=== PATIENT | male | born 1990 | race Caucasian/White ===

== ENCOUNTER 2020-05-31 19:32 | Emergency (ER) | payer OTHER ==
[2020-05-31] MEDS ORDERED: SODIUM CHLORIDE 0.9% 1,000 ML IV STA (20:03)
--- NOTE | 2020-05-31 20:39 | XR ---
EXAMINATION TYPE: XR chest 2V DATE OF EXAM: 05/31/2020 COMPARISON: NONE HISTORY: Chest pain. TECHNIQUE: Frontal and lateral views of the chest are obtained. FINDINGS: Overlying EKG leads. There is no focal air space opacity, pleural effusion, or pneumothorax seen. The cardiac silhouette size is within normal limits. The osseous structures are intact. IMPRESSION: No acute cardiopulmonary process.
[2020-05-31 20:40] LABS: ALT 18 U/L (4-49); AST 33 U/L (17-59); African American GFR (CKD) >90 (>60 ml/min/1.73 sqM); Alkaline Phosphatase 56 U/L (38-126); Anion Gap 6 mmol/L; Blood Urea Nitrogen 8 mg/dL (9-20); Calcium 8.8 mg/dL (8.4-10.2); Carbon Dioxide 24 mmol/L (22-30); Chloride 106 mmol/L (98-107); Glucose 109 mg/dL (74-99); Magnesium 1.6 mg/dL (1.6-2.3); Non-African American GFR(CKD) >90 (>60 ml/min/1.73 sqM); Potassium 3.6 mmol/L (3.5-5.1); Sodium 136 mmol/L (137-145); Total Bilirubin 0.5 mg/dL (0.2-1.3); Total Protein 6.8 g/dL (6.3-8.2)
[2020-05-31 20:46] LABS: HCT 40.6 % (39.0-53.0); MCH 31.3 pg (25.0-35.0); MCHC 34.5 g/dL (31.0-37.0); MCV 90.6 fL (80.0-100.0); Mean Platelet Volume 8.5; Platelet Count 155 k/uL (150-450); RBC 4.48 m/uL (4.30-5.90); WBC 9.6 k/uL (3.8-10.6)
--- NOTE | 2020-05-31 20:47 | ED ---
General Adult HPI - General Chief complaint: Chest Pain Stated complaint: chest discomfort Time Seen by Provider: 05/31/20 19:35 Source: EMS, RN notes reviewed, old records reviewed Mode of arrival: EMS Limitations: no limitations - History of Present Illness Initial comments: 29-year-old male patient presents to ED for evaluation of brief episode of chest discomfort and shortness of breath. Patient reports that he is at [facility] for alcohol and heroin and Xanax abuse. He reports that he snorts the heroin denies ever doing any IV drugs. Reports that they have no air conditioning there and that he is doing chores and working strenuously all day. Reports that he was very hot feels like overexerted himself. Reports that he had some brief anterior Chest discomfort and Shortness of Breath. States that it was like a muscle ache. Nonradiating, no other associated symptoms. States that he is feeling much better now that he is an air conditioning and relaxed. Denies and pain or other acute complaints. Systemic: Pt denies fatigue, fever/chills, rash. Pt denies weakness, night sweats, weight loss. Neuro: Pt denies headache, visual disturbances, syncope or pre-syncope. HEENT: Pt denies ocular discharge or irritation, otalgia, rhinorrhea, pharyngitis or notable lymphadenopathy. Cardiopulmonary: Pt denies heart palpitations. Abdominal/GI: Pt denies abdominal pain, n/v/d. : Pt denies dysuria, burning w/ urination, frequency/urgency. Denies new onset urinary or bowel incontinence. MSK: Pt denies loss of strength or function in extremities. Neuro: Pt denies new onset weakness, paresthesias. - Related Data Home Medications Medication Instructions Recorded Confirmed No Known Home Medications 05/31/20 05/31/20 Allergies Allergy/AdvReac Type Severity Reaction Status Date / Time Penicillins Allergy Rash/Hives Verified 05/31/20 19:45 Review of Systems ROS Statement: Those systems with pertinent positive or pertinent negative responses have been documented in the HPI. ROS Other: All systems not noted in ROS Statement are negative. Past Medical History Additional Past Medical History / Comment(s): pancreatitis History of Any Multi-Drug Resistant Organisms: None Reported Past Surgical History: No Surgical Hx Reported Past Psychological History: No Psychological Hx Reported Smoking Status: Current every day smoker Past Alcohol Use History: Abuse Past Drug Use History: Heroin, Prescription Drug Abuse General Exam - General Exam Comments Initial Comments: Constitutional: NAD, AOX3, Pt has pleasant affect. HEENT: NC/AT, trachea midline, neck supple, no lymphadenopathy. Posterior pharynx non erythematous, without exudates. External ears appear normal, without discharge. Mucous membranes moist. Eyes PERRLA, EOM intact. There is no scleral icterus. No pallor noted. Cardiopulmonary: RRR, no murmurs, rubs or gallops, no JVD noted. Lungs CTAB in anterior and posterior ansari. No peripheral edema. Abdominal exam: Abdomen soft and non-distended. Abdomen non-tender to palpation in all 4 quadrants. Bowel sounds active in LLQ. No hepatosplenomegaly. No ecchymosis Neuro: CN II-XII intact. No nuchal rigidity. No raccon eyes, no clemens sign, no hemotympanum. No cervical spinal tenderness. No ataxia, no nystagmus. MSK: No posterior calf tenderness bilaterally, homans sign negative bilaterally. Posterior tibialis and radial pulse +2 bilaterally. Sensation intact in upper and lower extremities. Full active ROM in upper and lower extremities, 5/5 stregnth. Limitations: no limitations Course Vital Signs 05/31/20 19:40 Temperature 98.2 F Pulse Rate 76 Respiratory 16 Rate Blood Pressure 153/100 O2 Sat by Pulse 99 Oximetry Medical Decision Making - Medical Decision Making 29-year-old male patient is evaluation after brief episodes of chest pain shortness breath while working on a hot day. Upon evaluation patient had no acute complaints to that he felt much improved. Patient's vital signs are stable, afebrile. Physical exam didn't display acute pathology. Laboratory investigations are non-impressive. Patient continues to state that he is asymptomatic. Patient will be discharged with follow-up with primary care provi dmitriy will return to ER if condition worsens. Case discussed with Dr. Trivedi. - Lab Data Result diagrams: 05/31/20 20:18 05/31/20 20:18 Lab Results 05/31/20 05/31/20 05/31/20 Range/Units 20:18 20:18 20:18 WBC 9.6 (3.8-10.6) k/uL RBC 4.48 (4.30-5.90) m/uL Hgb 14.0 (13.0-17.5) gm/dL Hct 40.6 (39.0-53.0) % MCV 90.6 (80.0-100.0) fL MCH 31.3 (25.0-35.0) pg MCHC 34.5 (31.0-37.0) g/dL RDW 14.0 (11.5-15.5) % Plt Count 155 (150-450) k/uL Neutrophils % (Manual) 72 % Band Neutrophils % 2 % Lymphocytes % (Manual) 22 % Monocytes % (Manual) 4 % Neutrophils # (Manual) 7.10 (1.3-7.7) k/uL Lymphocytes # (Manual) 2.11 (1.0-4.8) k/uL Monocytes # (Manual) 0.38 (0-1.0) k/uL Nucleated RBCs 0 (0-0) /100 WBC Manual Slide Review Performed Polychromasia Present Anisocytosis (manual) Present Sodium 136 L (137-145) mmol/L Potassium 3.6 (3.5-5.1) mmol/L Chloride 106 (98-107) mmol/L Carbon Dioxide 24 (22-30) mmol/L Anion Gap 6 mmol/L BUN 8 L (9-20) mg/dL Creatinine 0.57 L (0.66-1.25) mg/dL Est GFR (CKD-EPI)AfAm >90 (>60 ml/min/1.73 sqM) Est GFR (CKD-EPI)NonAf >90 (>60 ml/min/1.73 sqM) Glucose 109 H (74-99) mg/dL Calcium 8.8 (8.4-10.2) mg/dL Magnesium 1.6 (1.6-2.3) mg/dL Total Bilirubin 0.5 (0.2-1.3) mg/dL AST 33 (17-59) U/L ALT 18 (4-49) U/L Alkaline Phosphatase 56 (38-126) U/L Troponin I <0.012 (0.000-0.034) ng/mL Total Protein 6.8 (6.3-8.2) g/dL Albumin 4.0 (3.5-5.0) g/dL Urine Color Urine Appearance (Clear) Urine pH (5.0-8.0) Ur Specific [place] (1.001-1.035) Urine Protein (Negative) Urine Glucose (UA) (Negative) Urine Ketones (Negative) Urine Blood (Negative) Urine Nitrite (Negative) Urine Bilirubin (Negative) Urine Urobilinogen (<2.0) mg/dL Ur Leukocyte Esterase (Negative) 05/31/20 Range/Units 21:43 WBC (3.8-10.6) k/uL RBC (4.30-5.90) m/uL Hgb (13.0-17.5) gm/dL Hct (39.0-53.0) % MCV (80.0-100.0) fL MCH (25.0-35.0) pg MCHC (31.0-37.0) g/dL RDW (11.5-15.5) % Plt Count (150-450) k/uL Neutrophils % (Manual) % Band Neutrophils % % Lymphocytes % (Manual) % Monocytes % (Manual) % Neutrophils # (Manual) (1.3-7.7) k/uL Lymphocytes # (Manual) (1.0-4.8) k/uL Monocytes # (Manual) (0-1.0) k/uL Nucleated RBCs (0-0) /100 WBC Manual Slide Review Polychromasia Anisocytosis (manual) Sodium (137-145) mmol/L Potassium (3.5-5.1) mmol/L Chloride (98-107) mmol/L Carbon Dioxide (22-30) mmol/L Anion Gap mmol/L BUN (9-20) mg/dL Creatinine (0.66-1.25) mg/dL Est GFR (CKD-EPI)AfAm (>60 ml/min/1.73 sqM) Est GFR (CKD-EPI)NonAf (>60 ml/min/1.73 sqM) Glucose (74-99) mg/dL Calcium (8.4-10.2) mg/dL Magnesium (1.6-2.3) mg/dL Total Bilirubin (0.2-1.3) mg/dL AST (17-59) U/L ALT (4-49) U/L Alkaline Phosphatase (38-126) U/L Troponin I (0.000-0.034) ng/mL Total Protein (6.3-8.2) g/dL Albumin (3.5-5.0) g/dL Urine Color Light Yellow Urine Appearance Clear (Clear) Urine pH 7.5 (5.0-8.0) Ur Specific [place] 1.008 (1.001-1.035) Urine Protein Negative (Negative) Urine Glucose (UA) Negative (Negative) Urine Ketones Trace H (Negative) Urine Blood Negative (Negative) Urine Nitrite Negative (Negative) Urine Bilirubin Negative (Negative) Urine Urobilinogen <2.0 (<2.0) mg/dL Ur Leukocyte Esterase Negative (Negative) - EKG Data -: EKG Interpreted by Me (and Dr. Trivedi ) EKG Comments: Ventricular rate 62, peripheral 140, QRS 114, QT/QTc 416/4.2. Ceftin sensory. Incomplete right bundle branch block. Left anterior fascicular block. No concern for acute ischemia. Disposition Clinical Impression: Atypical chest pain Disposition: HOME SELF-CARE Condition: Stable Instructions (If sedation given, give patient instructions): Chest Wall Pain (ED) Additional Instructions: Follow up with PCP tomorrow. Return to ED if condition worsens. Is patient prescribed a controlled substance at d/c from ED?: No Referrals: None,Stated [Primary Care Provider] - 1-2 days Darion Navarro MD [REFERRING] - 1-2 days
[2020-05-31 22:03] LABS: Appearance,Urine Clear (Clear); Bilirubin,Urine Negative (Negative); Blood,Urine Negative (Negative); Color,Urine Light Yellow; Glucose,Urine (UA) Negative (Negative); Ketones,Urine Trace (Negative); Leukocyte Esterase,Urine Negative (Negative); Nitrite,Urine Negative (Negative); PH, Urine 7.5 (5.0-8.0); Protein,Urine Negative (Negative); Specific Gravity,Urine 1.008 (1.001-1.035); Urobilinogen,Urine <2.0 mg/dL (<2.0)
[2020-05-31 22:59] LABS: Band Neutrophils % 2 %; Lymphocytes # (M) 2.11 k/uL (1.0-4.8); Monocytes # (M) 0.38 k/uL (0-1.0); Neutrophils % (M) 72 %; Nucleated Red Blood Cells 0 /100 WBC (0-0); Total Cells Counted 100
[2020-05-31 23:00] LABS: Anisocytosis (M) Present
[2020-05-31 23:02] LABS: Polychromasia Present
[2020-05-31 23:36] VITALS: BP 124/108; PULSE 61; RESP 18; TEMP 99.1
== END 2020-05-31 23:36 | disposition home or self-care (01) ==
LOC: EC 19:32
DX: R07.89 Other chest pain (principal); R06.02 Shortness of breath; F17.200 Nicotine dependence, unspecified, uncomplicated; Z88.0 Allergy status to penicillin
CPT/HCPCS: 36415; 71046; 80053; 81003; 83735; 84484; 85025; 93005; 96360; 96361; 99285

== ENCOUNTER 2024-03-21 01:10 | Observation (INO) | payer OTHER ==
[2024-03-21] MEDS ORDERED: LORazepam 2 MG/ML INJ IV PRN ×2 (01:26)
[2024-03-21] MEDS: SODIUM CHLORIDE 0.9% 1,000 ML IV STA (02:36)
[2024-03-21] MEDS: THIAMINE 100 MG/ML 2 ML VIAL IM STA (02:39)
[2024-03-21] MEDS: LORazepam 2 MG/ML INJ IV PRN (03:03)
[2024-03-21 03:13] LABS: ALT 20 U/L (4-49); AST 29 U/L (17-59); African American GFR (CKD) >90 (>60 ml/min/1.73 sqM); Albumin 4.1 g/dL (3.5-5.0); Alkaline Phosphatase 63 U/L (38-126); Anion Gap 5 mmol/L; Blood Urea Nitrogen 5 mg/dL (9-20); Calcium 8.7 mg/dL (8.4-10.2); Carbon Dioxide 26 mmol/L (22-30); Chloride 105 mmol/L (98-107); Glucose 113 mg/dL (74-99); Lipase 161 U/L (23-300); Magnesium 1.6 mg/dL (1.6-2.3); Non-African American GFR(CKD) >90 (>60 ml/min/1.73 sqM); Potassium 3.6 mmol/L (3.5-5.1); Sodium 136 mmol/L (137-145); Total Bilirubin 0.6 mg/dL (0.2-1.3)
[2024-03-21 03:19] LABS: HCT 42.5 % (39.0-53.0); HGB 14.3 gm/dL (13.0-17.5); MCH 29.6 pg (25.0-35.0); MCHC 33.6 g/dL (31.0-37.0); MCV 88.1 fL (80.0-100.0); Mean Platelet Volume 8.3; RBC 4.82 m/uL (4.30-5.90); RDW 15.4 % (11.5-15.5); WBC 7.5 k/uL (3.8-10.6)
[2024-03-21 03:22] LABS: Platelet Count 90 k/uL (150-450)
--- NOTE | 2024-03-21 03:58 | ED ---
Alcohol HPI - General Chief Complaint: Alcohol Stated Complaint: Detox Time Seen by Provider: 03/21/24 01:22 Source: patient, EMS Mode of arrival: EMS - History of Present Illness Initial Comments: . 33-year-old male presenting from [place] for paranoia and hallucinations. Patient is currently detoxing from alcohol, benzodiazepines, and opioids. This evening the patient began hallucinating believing that he was being watched on the security footage at the facility. He was also refusing his medications. He was sent to our facility for further evaluation. Patient stat es "I feel great". - Related Data Home Medications Medication Instructions Recorded Confirmed Acetaminophen Tab [Tylenol] 650 mg PO Q4H MDD 4 DOSES 03/21/24 03/21/24 Calcium/Mag/D3/Zinc 1 tab PO TID PRN 03/21/24 03/21/24 Ibuprofen [Motrin Ib] 600 mg PO Q6H PRN 03/21/24 03/21/24 Multivitamins, Thera [Multivitamin 1 tab PO DAILY 03/21/24 03/21/24 (formulary)] Mylanta 30 ml PO Q4H PRN 03/21/24 03/21/24 QUEtiapine [SEROquel] 50 - 100 mg PO HS PRN 03/21/24 03/21/24 Thiamine [Vitamin B-1] 100 mg PO DAILY 03/21/24 03/21/24 buprenorphine HCL [Subutex] 2 - 4 mg SL DIRECTED 03/21/24 03/21/24 cloNIDine HCL [Catapres] 0.1 mg PO Q4H PRN 03/21/24 03/21/24 ondansetron HCL [Zofran] 8 mg PO Q6H PRN 03/21/24 03/21/24 Allergies Allergy/AdvReac Type Severity Reaction Status Date / Time Penicillins Allergy Rash/Hives Verified 03/21/24 06:33 Review of Systems ROS Statement: Those systems with pertinent positive or pertinent negative responses have been documented in the HPI. ROS Other: All systems not noted in ROS Statement are negative. Past Medical History Additional Past Medical History / Comment(s): pancreatitis History of Any Multi-Drug Resistant Organisms: None Reported Past Surgical History: No Surgical Hx Reported Past Psychological History: No Psychological Hx Reported Smoking Status: Current every day smoker Past Alcohol Use History: Abuse Past Drug Use History: Heroin, Prescription Drug Abuse General Exam General appearance: alert, in no apparent distress Head exam: Present: atraumatic, normocephalic Eye exam: Present: normal appearance, EOMI Neck exam: Present: normal inspection. Absent: meningismus Respiratory exam: Present: normal lung sounds bilaterally. Absent: respiratory distress, wheezes, rales, rhonchi, stridor Cardiovascular Exam: Present: regular rate, normal rhythm, normal heart sounds. Absent: systolic murmur, diastolic murmur, rubs, gallop, clicks Neurological exam: Present: alert, oriented X3 Expanded Focused psych exam: Present: delusional, paranoid Skin exam: Present: normal color Course Vital Signs 03/21/24 03/21/24 03/21/24 01:12 02:15 03:00 Temperature 98.9 F Pulse Rate 105 H 118 H 105 H Respiratory 18 20 18 Rate Blood Pressure 146/94 145/90 137/86 O2 Sat by Pulse 96 99 98 Oximetry 03/21/24 03/21/24 03/21/24 04:00 07:00 14:00 Temperature 98.4 F Pulse Rate 86 68 89 Respiratory 16 16 18 Rate Blood Pressure 135/83 149/91 113/88 O2 Sat by Pulse 99 97 99 Oximetry Medical Decision Making - Medical Decision Making Was pt. sent in by a medical professional or institution ([facility], [facility], urgent care, hospital, or [facility]...) When possible be specific @ -Sent from [facility] Did you speak to anyone other than the patient for history (EMS, parent, family, police, friend...)? What history was obtained from this source @ -No Did you review nursing and triage notes (agree or disagree)? Why? @ -I reviewed and agree with nursing and triage notes Were old charts reviewed (outside hosp., previous admission, EMS record, old EKG, old radiological studies, urgent care reports/EKG's, [facility] records)? Report findings @ -No old charts were reviewed Differential Diagnosis (chest pain, altered mental status, abdominal pain women, abdominal pain men, vaginal bleeding, weakness, fever, dyspnea, syncope, headache, dizziness, GI bleed, back pain, seizure, CVA, palpatations, mental health, musculoskeletal)? @ -Differential includes alcohol withdrawal, tachycardia, electrolyte imbalance, infectious process, this is not an all-inclusive list EKG interpreted by me (3pts min.). @ -As above X-rays interpreted by me (1pt min.). @ -None done CT interpreted by me (1pt min.). @ -None done U/S interpreted by me (1pt. min.). @ -None done What testing was considered but not performed or refused? (CT, X-rays, U/S, labs)? Why? @ -None What meds were considered but not given or refused? Why? @ -None Did you discuss the management of the patient with other professionals (professionals i.e. DrBarry, PA, [employer], lab, RT, psych nurse, director of social work, pneumatic systems operator, teacher, command center officer, high risk case manager)? Give summary @ -My attending spoke with the [facility] provider on-call accepted admission Was smoking cessation discussed for >3mins.? @ -No Was critical care preformed (if so, how long)? @ -No Were there social determinants of health that impacted care today? How? (Homelessness, low income, unemployed, alcoholism, drug addiction, transportation, low edu. Level, literacy, decrease access to med. care, group home, rehab)? @ -No Was there de-escalation of care discussed even if they declined (Discuss DNR or withdrawal of care, Hospice)? DNR status @ -No What co-morbidities impacted this encounter? (DM, HTN, Smoking, COPD, CAD, Cancer, CVA, ARF, Chemo, Hep., AIDS, mental health diagnosis, sleep apnea, morbid obesity)? @ -Alcohol use disorder Was patient admitted / discharged? Hospital course, mention meds given and route, prescriptions, significant lab abnormalities, going to OR and other pertinent info. @ -33-year-old male symptomatic heart for alcohol withdrawal symptoms. Patient was having hallucinations and severe paranoia. History and physical exam are conducted. CIWA is 14. Patient placed on CIWA protocol and will be admitted for alcohol withdrawal. I discussed this case with my attending Dr. Xie Undiagnosed new problem with uncertain prognosis? @ -No Drug Therapy requiring intensive monitoring for toxicity (Heparin, Nitro, Insulin, Cardizem)? @ -No Were any procedures done? @ -No Diagnosis/symptom? @ -Alcohol withdrawal Acute, or Chronic, or Acute on Chronic? @ -Acute Uncomplicated (without systemic symptoms) or Complicated (systemic symptoms)? @ -Complicated Side effects of treatment? @ -No Exacerbation, Progression, or Severe Exacerbation? @ -No Poses a threat to life or bodily function? How? (Chest pain, [place], [place], pneumonia, PE, COPD, DKA, ARF, appy, cholecystitis, CVA, Diverticulitis, Homicidal, Suicidal, threat to staff... and all critical care pts) @ -Yes - Lab Data Result diagrams: 03/21/24 02:53 03/21/24 02:53 Lab Results 03/21/24 03/21/24 Range/Units 02:53 02:53 WBC 7.5 (3.8-10.6) k/uL RBC 4.82 (4.30-5.90) m/uL Hgb 14.3 (13.0-17.5) gm/dL Hct 42.5 (39.0-53.0) % MCV 88.1 (80.0-100.0) fL MCH 29.6 (25.0-35.0) pg MCHC 33.6 (31.0-37.0) g/dL RDW 15.4 (11.5-15.5) % Plt Count 90 L (150-450) k/uL MPV 8.3 Neutrophils % (Manual) 65 % Lymphocytes % (Manual) 23 % Monocytes % (Manual) 12 % Neutrophils # (Manual) 4.88 (1.3-7.7) k/uL Lymphocytes # (Manual) 1.73 (1.0-4.8) k/uL Monocytes # (Manual) 0.90 (0-1.0) k/uL Nucleated RBCs 0 (0-0) /100 WBC Manual Slide Review Performed RBC Morphology Normal Sodium 136 L (137-145) mmol/L Potassium 3.6 (3.5-5.1) mmol/L Chloride 105 (98-107) mmol/L Carbon Dioxide 26 (22-30) mmol/L Anion Gap 5 mmol/L BUN 5 L (9-20) mg/dL Creatinine 0.43 L (0.66-1.25) mg/dL Est GFR (CKD-EPI)AfAm >90 (>60 ml/min/1.73 sqM) Est GFR (CKD-EPI)NonAf >90 (>60 ml/min/1.73 sqM) Glucose 113 H (74-99) mg/dL Calcium 8.7 (8.4-10.2) mg/dL Magnesium 1.6 (1.6-2.3) mg/dL Total Bilirubin 0.6 (0.2-1.3) mg/dL AST 29 (17-59) U/L ALT 20 (4-49) U/L Alkaline Phosphatase 63 (38-126) U/L Total Protein 7.0 (6.3-8.2) g/dL Albumin 4.1 (3.5-5.0) g/dL Lipase 161 (23-300) U/L Disposition Clinical Impression: Alcohol withdrawal syndrome Disposition: ADMITTED IP TO THIS HOSP Condition: Fair Is patient prescribed a controlled substance at d/c from ED?: No Time of Disposition: 04:12
[2024-03-21] MEDS ORDERED: ONDANSETRON 4 MG/2 ML VIAL IVP PRN (04:10)
[2024-03-21] MEDS ORDERED: NALOXONE 0.4 MG/ML 1 ML VIAL IV PRN (04:10)
[2024-03-21] MEDS ORDERED: IBUPROFEN 400 MG TAB PO PRN (04:10)
[2024-03-21 05:02] LABS: Lymphocytes # (M) 1.73 k/uL (1.0-4.8); Neutrophils # (M) 4.88 k/uL (1.3-7.7); Neutrophils % (M) 65 %; Nucleated Red Blood Cells 0 /100 WBC (0-0); RBC Morphology Normal; Total Cells Counted 100
[2024-03-21] MEDS ORDERED: HYOSCYAMINE SULFATE 0.125 MG TAB PO PRN (10:02)
[2024-03-21] MEDS ORDERED: cloNIDine HCL 0.1 MG TAB PO PRN (10:02)
[2024-03-21] MEDS ORDERED: LOPERAMIDE 2 MG CAP PO PRN (10:02)
[2024-03-21] MEDS: MULTIVITAMINS, THERA 1 EACH TAB PO SCH (10:13)
[2024-03-21] MEDS: ACETAMINOPHEN TAB 325 MG TAB PO SCH (10:13)
--- NOTE | 2024-03-21 12:13 | P.HPIM ---
History of Present Illness 33-year-old male was sent in here from [facility] because of paranoia and hallucinations although patient denies any such symptoms to me. Patient is at [facility] for alcohol intoxication patient last drink was about 5 days ago austin dyer is presently not have any withdrawals and I do not expect any withdrawals at this time. Does not have any symptoms of schizophrenia or schizoaffective disorder. Patient denied any visual, tactile or auditory hallucinations. Patient thought processes fine there is no tangentiality. Patient is on multiple medications that can cause confusion including Imodium Levsin on as- needed basis. Patient had history of IV drug use in the past and is on Subutex as an outpatient. Patient does not know if he has hepatitis C. REVIEW OF SYSTEMS: CONSTITUTIONAL: No fever, no malaise, no fatigue. HEENT: No recent visual problems or hearing problems. Denied any sore throat. CARDIOVASCULAR: No chest pain, orthopnea, PND, no palpitations, no syncope. PULMONARY: No shortness of breath, no cough, no hemoptysis. GASTROINTESTINAL: No diarrhea, no nausea, no vomiting, no abdominal pain. NEUROLOGICAL: No headaches, no weakness, no numbness. HEMATOLOGICAL: Denies any bleeding or petechiae. GENITOURINARY: Denies any burning micturition, frequency, or urgency. MUSCULOSKELETAL/RHEUMATOLOGICAL: Denies any joint pain, swelling, or any muscle pain. ENDOCRINE: Denies any polyuria or polydipsia. The rest of the 14-point review of systems is negative. PHYSICAL EXAMINATION: GENERAL: The patient is alert and oriented x3, not in any acute distress. Well developed, well nourished. HEENT: Pupils are round and equally reacting to light. EOMI. No scleral icterus. No conjunctival pallor. Normocephalic, atraumatic. No pharyngeal erythema. No thyromegaly. CARDIOVASCULAR: S1 and S2 present. No murmurs, rubs, or gallops. PULMONARY: Chest is clear to auscultation, no wheezing or crackles. ABDOMEN: Soft, nontender, nondistended, normoactive bowel sounds. No palpable organomegaly. MUSCULOSKELETAL: No joint swelling or deformity. EXTREMITIES: No cyanosis, clubbing, or pedal edema. NEUROLOGICAL: Gross neurological examination did not reveal any focal deficits. SKIN: No rashes. Assessment and plan -Complains of visual hallucinations which patient denied patient is not paranoid. Patient does not have agitation at this time. Patient is not overtly psychotic patient probably will not need inpatient psychiatry. Although if patient continues to have paranoia will benefit from outpatient psychiatry evaluation. -Alcohol withdrawal patient does not have any withdrawals send I do not expect any withdrawals at this time patient will be discharged back to [facility]. -Anxiety other psychiatric issues: Patient does not have any diagnosis of schizoaffective disorder or schizophrenia although takes Seroquel on as-needed basis. Patient is more anxious that he is missing his Subutex then alcohol withdrawals I do not expect any major alcohol withdrawals but if needed patient can receive Ativan on as-needed basis at [facility] -Thrombocytopenia secondary to chronic alcoholism -History of IV drug use patient will benefit from hepatitis C testing and acute hepatitis panel as an outpatient. Patient will be discharged today Past Medical History Additional Past Medical History / Comment(s): pancreatitis History of Any Multi-Drug Resistant Organisms: None Reported Past Surgical History: No Surgical Hx Reported Past Psychological History: No Psychological Hx Reported Smoking Status: Current every day smoker Past Alcohol Use History: Abuse Past Drug Use History: Heroin, Prescription Drug Abuse Medications and Allergies Home Medications Medication Instructions Recorded Confirmed Type Acetaminophen Tab [Tylenol] 650 mg PO Q4H MDD 4 DOSES 03/21/24 03/21/24 History Calcium/Mag/D3/Zinc 1 tab PO TID PRN 03/21/24 03/21/24 History Ibuprofen [Motrin Ib] 600 mg PO Q6H PRN 03/21/24 03/21/24 History Multivitamins, Thera [Multivitamin 1 tab PO DAILY 03/21/24 03/21/24 History (formulary)] Mylanta 30 ml PO Q4H PRN 03/21/24 03/21/24 History QUEtiapine [SEROquel] 50 - 100 mg PO HS PRN 03/21/24 03/21/24 History Thiamine [Vitamin B-1] 100 mg PO DAILY 03/21/24 03/21/24 History buprenorphine HCL [Subutex] 2 - 4 mg SL DIRECTED 03/21/24 03/21/24 History cloNIDine HCL [Catapres] 0.1 mg PO Q4H PRN 03/21/24 03/21/24 History ondansetron HCL [Zofran] 8 mg PO Q6H PRN 03/21/24 03/21/24 History Allergies Allergy/AdvReac Type Severity Reaction Status Date / Time Penicillins Allergy Rash/Hives Verified 03/21/24 06:33 Physical Exam Vitals: Vital Signs Temp Pulse Resp BP Pulse Ox 03/21/24 07:00 68 16 149/91 97 03/21/24 04:00 86 16 135/83 99 03/21/24 03:00 105 H 18 137/86 98 03/21/24 02:15 118 H 20 145/90 99 03/21/24 01:12 98.9 F 105 H 18 146/94 96 Intake and Output 03/20/24 03/21/24 03/21/24 22:59 06:59 14:59 Other: Weight 81.647 kg Results CBC & Chem 7: 03/21/24 02:53 03/21/24 02:53 Labs: Abnormal Lab Results - Last 24 Hours (Table) 03/21/24 03/21/24 Range/Units 02:53 02:53 Plt Count 90 L (150-450) k/uL Sodium 136 L (137-145) mmol/L BUN 5 L (9-20) mg/dL Creatinine 0.43 L (0.66-1.25) mg/dL Glucose 113 H (74-99) mg/dL
[2024-03-21] MEDS: POTASSIUM CHLORIDE ER 20 MEQ TAB.ER PO STA (12:20)
[2024-03-21] MEDS: MAGNESIUM SULFATE-D5W PMX 1 GM in DEXTROSE/WATER 1 100ML.BAG IVPB SCH (12:20)
[2024-03-21] MEDS: BUPRENORPHINE HCL 2 MG SUBLINGUAL SCH (12:20)
--- NOTE | 2024-03-21 12:21 | P.DS ---
Providers Date of admission: 03/21/24 04:11 Attending physician: Jamie Bowman Primary care physician: Stated None Hospital Course: 33-year-old male was sent in here from [facility] because of paranoia and hallucinations although patient denies any such symptoms to me. Patient is at [facility] for alcohol intoxication patient last drink was about 5 days ago patient is presently not have any withdrawals and I do not expect any withdrawals at this time. Does not have any symptoms of schizophrenia or schizoaffective disorder. Patient denied any visual, tactile or auditory hallucinations. Patient thought processes fine there is no tangentiality. Patient is on multiple medications that can cause confusion including Imodium Levsin on as-needed basis. Patient had history of IV drug use in the past and is on Subutex as an outpatient. Patient does not know if he has hepatitis C. PHYSICAL EXAMINATION: GENERAL: The patient is alert and oriented x3, not in any acute distress. Well developed, well nourished. HEENT: Pupils are round and equally reacting to light. EOMI. No scleral icterus. No conjunctival pallor. Normocephalic, atraumatic. No pharyngeal erythema. No thyromegaly. CARDIOVASCULAR: S1 and S2 present. No murmurs, rubs, or gallops. PULMONARY: Chest is clear to auscultation, no wheezing or crackles. ABDOMEN: Soft, nontender, nondistended, normoactive bowel sounds. No palpable organomegaly. MUSCULOSKELETAL: No joint swelling or deformity. EXTREMITIES: No cyanosis, clubbing, or pedal edema. NEUROLOGICAL: Gross neurological examination did not reveal any focal deficits. SKIN: No rashes. Assessment and plan -Complains of visual hallucinations which patient denied patient is not paranoid. Patient does not have agitation at this time. Patient is not overtly psychotic patient probably will not need inpatient psychiatry. Although if patient continues to have paranoia will benefit from outpatient psychiatry evaluation. -Alcohol withdrawal patient does not have any withdrawals send I do not expect any withdrawals at this time patient will be discharged back to [facility]. -Anxiety other psychiatric issues: Patient does not have any diagnosis of schizoaffective disorder or schizophrenia although takes Seroquel on as-needed basis. Patient is more anxious that he is missing his Subutex then alcohol withdrawals I do not expect any major alcohol withdrawals but if needed patient can receive Ativan on as-needed basis at [facility] -Thrombocytopenia secondary to chronic alcoholism -History of IV drug use patient will benefit from hepatitis C testing and acute hepatitis panel as an outpatient. Patient will be discharged today Patient Condition at Discharge: Fair Plan - Discharge Summary New Discharge Prescriptions: Discontinued PHENobarbitaL [PHENobarbital] See Taper PO DIRECTED Hyoscyamine Sulfate [Levsin] 0.125 mg PO QID PRN PRN Reason: cramps Chlorpheniramine Maleate [Chlor-Trimeton] 4 mg PO Q4H PRN PRN Reason: Allergy Symptoms Metoprolol Succinate (ER) [Toprol Xl] 12.5 mg PO DAILY Loperamide HCl [Imodium A-D] 4 mg PO QID PRN MDD 8 tabs PRN Reason: Loose Stool No Action Thiamine [Vitamin B-1] 100 mg PO DAILY buprenorphine HCL [Subutex] 2 - 4 mg SL DIRECTED Multivitamins, Thera [Multivitamin (formulary)] 1 tab PO DAILY Ibuprofen [Motrin Ib] 600 mg PO Q6H PRN PRN Reason: Pain Calcium/Mag/D3/Zinc 1 tab PO TID PRN PRN Reason: cramps QUEtiapine [SEROquel] 50 - 100 mg PO HS PRN PRN Reason: Insomnia/anxiety ondansetron HCL [Zofran] 8 mg PO Q6H PRN PRN Reason: Nausea Acetaminophen Tab [Tylenol] 650 mg PO Q4H MDD 4 DOSES cloNIDine HCL [Catapres] 0.1 mg PO Q4H PRN PRN Reason: anxiety/opiate withdraw Mylanta 30 ml PO Q4H PRN PRN Reason: Gi Upset Discharge Medication List Acetaminophen Tab [Tylenol] 650 mg PO Q4H MDD 4 DOSES 03/21/24 [History] Calcium/Mag/D3/Zinc 1 tab PO TID PRN 03/21/24 [History] Ibuprofen [Motrin Ib] 600 mg PO Q6H PRN 03/21/24 [History] Multivitamins, Thera [Multivitamin (formulary)] 1 tab PO DAILY 03/21/24 [History] Mylanta 30 ml PO Q4H PRN 03/21/24 [History] QUEtiapine [SEROquel] 50 - 100 mg PO HS PRN 03/21/24 [History] Thiamine [Vitamin B-1] 100 mg PO DAILY 03/21/24 [History] buprenorphine HCL [Subutex] 2 - 4 mg SL DIRECTED 03/21/24 [History] cloNIDine HCL [Catapres] 0.1 mg PO Q4H PRN 03/21/24 [History] ondansetron HCL [Zofran] 8 mg PO Q6H PRN 03/21/24 [History] Follow up Appointment(s)/Referral(s): Lashon Ramírez MD [STAFF PHYSICIAN] - [address] [facility] [NON-STAFF] - 1 Week Discharge Disposition: OTHER INSTITUTION NOT DEFINED
[2024-03-21 14:02] VITALS: BP 113/88; PULSE 89; RESP 18; TEMP 98.4
[2024-03-22] MEDS ORDERED: THIAMINE 100 MG TAB PO SCH ×2 (09:00)
== END 2024-03-21 14:21 | disposition other institution (70) ==
LOC: EC 01:10 → 4SSUR 04:11
PROVIDERS: ADMIT Hospitalist; ATTEND Hospitalist
DX: F10.239 Alcohol dependence with withdrawal, unspecified (principal); F41.9 Anxiety disorder, unspecified; D69.59 Other secondary thrombocytopenia
CPT/HCPCS: 96361; 96365; 96366; 96375; 96376; 99285; 36415; 80053; 83690; 83735; 85025; G0378; J2060; J3475